=== PATIENT | male | born 1965 | race Hispanic/Latino ===

== ENCOUNTER → 2024-02-03 | Outpatient (CLI) | payer OTHER ==
[~2024-02-03] MED LIST: IOHEXOL 350 MG/ML 100ML INFUS..BTL IV ONE
--- NOTE | 2024-02-03 16:17 | HMCIMG ---
CT CHEST W/CONTRAST HISTORY: Right renal cancer COMPARISON: None TECHNIQUE: Multiple sequential axial images of the chest were obtained from the thoracic inlet through upper abdomen. Patient was given 100 cc of Omnipaque through intravenous route. FINDINGS: There is no evidence of pulmonary nodule or parenchymal disease. No pleural effusion or pericardial effusion is seen. There is no evidence of pneumothorax. There are normal size mediastinal and hilar lymph nodes. The heart is not enlarged. Degenerative changes of the thoracolumbar spine are present. There is no evidence of adrenal nodule. There are bilateral renal cysts. IMPRESSION: 1. No evidence of pulmonary nodule or effusion is seen. CT was performed with one or more following dose reduction techniques: automated exposure control, adjustment of the mA and kv according to patient's size, or use of a iterative reconstruction technique.
== END | disposition home or self-care (01) ==
LOC: RAH 14:56
PROVIDERS: ATTEND Surgery Surgical Oncology
DX: N28.1 Cyst of kidney, acquired (principal); M47.815 Spondylosis without myelopathy or radiculopathy, thoracolumbar region; C64.1 Malignant neoplasm of right kidney, except renal pelvis; N28.89 Other specified disorders of kidney and ureter
CPT/HCPCS: 71260; Q9967